=== PATIENT | male | born 1995 | race Caucasian/White ===

== ENCOUNTER 2018-08-04 09:11 | Emergency (ER) | payer OTHER ==
[~2018-08-04] VITALS: Ht 175.3 cm; Wt 92.7 kg
[2018-08-04] MEDS ORDERED: VALT1TAB PO (09:23)
[2018-08-04 11:16] VITALS: BP 139/77
== END 2018-08-04 11:18 | disposition home or self-care (01) ==
LOC: M ED 09:11
DX: R20.2 Paresthesia of skin (principal); T33.531A Superficial frostbite of right finger(s), initial encounter; Y92.89 Other specified places as the place of occurrence of the external cause; Y93.89 Activity, other specified; Z72.0 Tobacco use; Z79.899 Other long term (current) drug therapy

== ENCOUNTER 2018-11-24 02:28 | Emergency (ER) | payer OTHER ==
[~2018-11-24] VITALS: Ht 175.3 cm; Wt 93.2 kg
[~2018-11-24 02:28] MED LIST: VALT1TAB PO
[2018-11-24 02:58] LABS: BASO # 0.1 10^3/uL (0.0-0.2); BASO % 0.4 % (0.0-1.0); EOS # 0.2 10^3/uL (0.0-0.50); EOS % 1.5 % (0.0-3.0); LYMPH # 2.3 10^3/uL (1.5-6.5); LYMPH % 20.9 % (24.0-44.0); MEAN CORPUSCULAR VOLUME 85.3 fl (80.0-96.0); MONO # 0.9 10^3/uL (0.0-0.8); MONO % 8.4 % (0.0-5.0); NEUTROPHILS # 7.6 10^3/uL (1.8-7.7); NEUTROPHILS % 68.4 % (36.0-66.0); PLATELET COUNT, AUTOMATED 305 10^3/uL (150-450); RED BLOOD COUNT 5.51 10^6/uL (4.30-6.10); WHITE BLOOD COUNT 11.2 10^3/uL (4.0-10.0)
[2018-11-24 03:24] LABS: ALBUMIN 3.9 GM/DL (3.2-5.2); ALT/SGPT 34 U/L (12-78); AMYLASE 51 U/L (25-115); BILIRUBIN,DIRECT 0.2 MG/DL (0.0-0.2); BILIRUBIN,TOTAL 0.6 MG/DL (0.2-1.0); BLOOD UREA NITROGEN 25 MG/DL (7-18); CALCIUM LEVEL 8.5 MG/DL (8.5-10.1); CARBON DIOXIDE LEVEL 29 MEQ/L (21-32); CHLORIDE LEVEL 105 MEQ/L (98-107); CREATININE FOR GFR 1.06 MG/DL (0.70-1.30); GLOMERULAR FILTRATION RATE > 60.0 (>60); GLUCOSE, FASTING 86 MG/DL (70-100); LIPASE 147 U/L (73-393); POTASSIUM SERUM 3.8 MEQ/L (3.5-5.1); SODIUM LEVEL 141 MEQ/L (136-145); TOTAL PROTEIN 7.6 GM/DL (6.4-8.2)
[2018-11-24] MEDS ORDERED: ONDANSETRON 4 MG ORAL DISINTEGRATING TAB (Q0162 PER 1MG) PO ONE ×2 (03:30→06:15)
[2018-11-24 06:07] VITALS: BP 138/76
[2018-11-24] MEDS ORDERED: ONDA4TAB6 PO (06:09)
== END 2018-11-24 06:36 | disposition home or self-care (01) ==
LOC: M ED 02:28
DX: R11.2 Nausea with vomiting, unspecified (principal); R19.7 Diarrhea, unspecified; Z72.0 Tobacco use
CPT/HCPCS: 80048; 80076; 81001; 82150; 83690; 85025; 99283; Q0162

== ENCOUNTER 2020-03-31 22:31 | Inpatient (IN) | payer OTHER ==
[~2020-03-31] VITALS: Ht 175.3 cm; Wt 100.8 kg
[~2020-03-31 22:31] MED LIST changes: +ONDA4TAB6 PO
[2020-04-01] MEDS ORDERED: ONDANSETRON 4MG/2ML VIAL IV ONE (00:30)
[2020-04-01] MEDS ORDERED: NS 1,000 ML IV ONE ×2 (00:30→11:30)
[2020-04-01 00:44] LABS: BASO # 0.1 10^3/uL (0.0-0.2); BASO % 0.2 % (0.0-1.0); HEMATOCRIT 55.5 % (42.0-52.0); HEMOGLOBIN 19.7 g/dl (13.5-17.5); LYMPH # 1.6 10^3/uL (1.5-5.0); LYMPH % 5.5 % (24.0-44.0); MEAN CORPUSCULAR HEMOGLOBIN 28.8 pg (27.0-33.0); MEAN CORPUSCULAR HGB CONC 35.5 g/dl (32.0-36.5); MEAN CORPUSCULAR VOLUME 81.1 fl (80.0-96.0); MONO # 2.1 10^3/uL (0.0-0.8); MONO % 7.4 % (0.0-5.0); NEUTROPHILS # 24.2 10^3/uL (1.5-8.5); PLATELET COUNT, AUTOMATED 417 10^3/uL (150-450); RED BLOOD COUNT 6.84 10^6/uL (4.30-6.10); WHITE BLOOD COUNT 28.2 10^3/uL (4.0-10.0)
[2020-04-01] MEDS ORDERED: ISOVUE-370 76% 100ML VIAL As Ordered ONE (01:12)
[2020-04-01] MEDS ORDERED: KETOROLAC 30 MG/ML 1ML VIAL IV ONE (01:15)
[2020-04-01] MEDS ORDERED: METOCLOPRAMIDE INJ 10MG/2ML VIAL (J2765 PER 1) IV ONE (01:15)
[2020-04-01] MEDS ORDERED: GI COCKTAIL 50ML BTL(HYOSCYAMINE/MAALOX/LIDOCAINE VISCOUS)(1:3:1) PO ONE (01:15)
[2020-04-01 01:53] LABS: ALBUMIN 4.9 GM/DL (3.2-5.2); ALT/SGPT 113 U/L (12-78); BILIRUBIN,DIRECT 0.4 MG/DL (0.0-0.2); BILIRUBIN,TOTAL 1.5 MG/DL (0.2-1.0); BLOOD UREA NITROGEN 86 MG/DL (7-18); CALCIUM LEVEL 9.7 MG/DL (8.5-10.1); CARBON DIOXIDE LEVEL 22 MEQ/L (21-32); CHLORIDE LEVEL 77 MEQ/L (98-107); CPK CREATINE PHOSPHOKINASE 10799 U/L (39-308); CREATININE FOR GFR 5.93 MG/DL (0.70-1.30); GLOMERULAR FILTRATION RATE 12.8 (>60); GLUCOSE, FASTING 168 MG/DL (70-100); LIPASE 70 U/L (73-393); POTASSIUM SERUM 3.4 MEQ/L (3.5-5.1); SODIUM LEVEL 119 MEQ/L (136-145); TOTAL PROTEIN 9.5 GM/DL (6.4-8.2)
[2020-04-01] MEDS ORDERED: NS 2,000 ML in IV 1 EA IV ONE (02:00)
[2020-04-01] MEDS ORDERED: ONDA4TAB6 PO (02:26)
--- NOTE | 2020-04-01 02:27 | REPVR ---
PROCEDURE INFORMATION: Exam: CT Abdomen And Pelvis Without Contrast Exam date and time: 04/01/2020 1:06 AM Age: 24 years old Clinical indication: Vomiting; Additional info: Nv with all po x 3 days, generalized abd pain TECHNIQUE: Imaging protocol: Computed tomography of the abdomen and pelvis without contrast. Radiation optimization: All CT scans at this facility use at least one of these dose optimization techniques: automated exposure control; mA and/or kV adjustment per patient size (includes targeted exams where dose is matched to clinical indication); or iterative reconstruction. COMPARISON: No relevant prior studies available. FINDINGS: Mediastinal space: Mild mucosal thickening in the distal esophagus. Liver: The liver is low attenuation indicating hepatic steatosis. Gallbladder and bile ducts: Normal. No calcified stones. No ductal dilation. Pancreas: Normal. No ductal dilation. Spleen: Normal. No splenomegaly. Adrenals: Normal. No mass. Kidneys and ureters: Normal. No hydronephrosis. Stomach and bowel: Unremarkable. No obstruction. No inflammatory changes or mucosal thickening. Appendix: No evidence of appendicitis. Intraperitoneal space: Unremarkable. No free air. No significant fluid collection. Vasculature: Unremarkable. No abdominal aortic aneurysm. Lymph nodes: Unremarkable. No enlarged lymph nodes. Urinary bladder: Unremarkable as visualized. Reproductive: Unremarkable as visualized. Bones/joints: Unremarkable. No acute fracture. Soft tissues: Unremarkable. IMPRESSION: 1. Hepatic steatosis. 2. Mild mucosal thickening in the distal esophagus suggesting esophagitis. No hiatal hernia. 3. No other acute findings. Electronically signed by: Antonio Martin On 04/01/2020 02:26:38 AM
[2020-04-01] MEDS ORDERED: KCL 10MEQ/100ML SWI (KRUN) 10 MEQ in IV 1 EA IV ONE (02:45)
[2020-04-01] MEDS ORDERED: ACETAMINOPHEN TAB 650MG DOSE (2X325MG) PO PRN (02:45)
--- NOTE | 2020-04-01 02:53 | HPEPDOC ---
[facility] Medical History & Physical Date of Admission Apr 01, 2020 Date of Service: Apr 01, 2020 Other Provider [facility] History and Physical TIME OF SERVICE: 5:30 AM CHIEF COMPLAINT: Vomiting HISTORY OF PRESENT ILLNESS: This 24-year-old gentle and presented with complaints of multiple episodes of vomiting for the last 3 days. He is been having difficulties keeping any food down and has had a poor appetite. He has been trying to drink vitamin water to help keep him hydrated. He has also been having chills, episodes of sweating, diffuse cramping abdominal pain, and cramping in his arms and legs. 3 L of normal saline were ordered in the ER along with Reglan ketorolac and a GI cocktail. REVIEW OF SYSTEMS: 12 point review of systems negative except as listed in HPI PAST MEDICAL/ SURGICAL HISTORY: Right hip surgery SOCIAL HISTORY: He smokes He doesn't drink alcohol He doesn't use recreational drugs FAMILY HISTORY: no family hx of kidney disease ALLERGIES: Please see below. HOME MEDICATIONS: Please see below. PHYSICAL EXAMINATION: Vital Signs Date Time Temp Pulse Resp B/P (MAP) Pulse Ox O2 Delivery O2 Flow Rate FiO2 03/31/20 22:32 104 20 99 Room Air 04/01/20 01:36 97.8 GEN: well-nourished / well developed/ NAD INTEGUMENT: slightly flushed/ slighly jaundice / has tattoos HEENT: mucus membranes moist and pink CVS: RRR/NMRG/ radial pulses intact / no lower extremity edema LUNGS: able to speak full sentences without stopping to take a breath / no coughing / lungs are clear to auscultation bilaterally on room air ABDOMEN: Contour ( obese) / soft MSK/EXTREMITIES: range of motion intact in all 4 extremities NEURO: CN 2-12 are grossly intact / speech is not dysarthric PSYCH: alert and oriented to person place and time/ able to understand and follow all commands LABORATORY DATA: 04/01/20 00:38 Immature Granulocyte % (Auto) 0.9, Neutrophils (%) (Auto) 86.0H, Lymphocytes (%) (Auto) 5.5L, Monocytes (%) (Auto) 7.4H, Eosinophils (%) (Auto) 0.0, Basophils (%) (Auto) 0.2, Neutrophils # (Auto) 24.2H, Lymphocytes # (Auto) 1.6, Monocytes # (Auto) 2.1H, Eosinophils # (Auto) 0.0, Basophils # (Auto) 0.1, Nucleated Red Blood Cells % (auto) 0.0, Anion Gap 20H, Glomerular Filtration Rate 12.8L, Calcium Level 9.7, Total Bilirubin 1.5H, Direct Bilirubin 0.4H, Aspartate Amino Transf (AST/SGOT) 223H, Alanine Aminotransferase (ALT/SGPT) 113H, Alkaline Phosphatase 132H, Total Creatine Kinase 60968P, Total Protein 9.5H, Albumin 4.9, Albumin/Globulin Ratio 1.1, Lipase 70L 04/01/20 02:22: Urine Color YELLOW, Urine Appearance CLOUDYH, Urine pH 5.0, Urine Specific [place] 1.016, Urine Protein 1+H, Urine Glucose (UA) NEGATIVE, Urine Ketones TRACEH, Urine Blood 3+H, Urine Nitrite NEGATIVE, Urine Bilirubin NEGATIVE, Urine Urobilinogen 0.2, Urine Leukocyte Esterase NEGATIVE, Urine WBC (Auto) 29H, Urine RBC (Auto) 3, Urine Hyaline Casts (Auto) 31, Urine Bacteria (Auto) 1+H, Urine Squamous Epithelial Cells 0, Urine Amorphous Sediment SMALLH, Urine Mucus (Auto) SMALL, Urine Sperm (Auto) IMAGING: CT abd/pelvis "IMPRESSION: 1. Hepatic steatosis. 2. Mild mucosal thickening in the distal esophagus suggesting esophagitis. No hiatal hernia. 3. No other acute findings." MICROBIOLOGY: 04/01/20 Urine Culture, Received Pending ASSESSMENT: is a 24-year-old gentleman who will be admitted for management of n/v, BRIAN, SIRS, multiple electrolyte abnormalities and transaminitis. PLAN: 1 Dehydration 2/2 Nausea and Vomiting Plan: admit to med surg w telemetry / check EKG for QTC prior to giving Zofran / NS / try CLD 2 SIRS likely reactive criteria include tachycardia and leukocytosis Plan: f/u lactic acid, blood cx & GI panel 3 Multifactorial BRIAN likely 2/2 dehydration and elevated CK Plan: monitor Is and Os / IVF / f/u ulytes / uric acid, PTH, Phosph / f/u w Nephro 4 Asymptomatic Hypovolemic Hyponatremia Plan: f/u Adrienne, Uosmo, serum osmol / IVF 5 Hypokalemia 2/2 vomiting and poor PO intake Plan: KCl IV & f/u Mag 6 Elevated CK pt denies taking drugs and reports working out frequently Plan:IVF / trend CK/ f/u urine drug screen 7 AG Metabolic Acidosis Plan: f/u VBG & repeat BMP / f/u w Nephro [address] showed fatty liver He denies eating out which makes Hep A less likely Plan:f/u Hep panel, HIV and trend LFTs 9 Obesity Plan: f/u A1C DVT PROPHYLAXIS: Heparin DISPOSITION: home after more than 2 midnight's stay Home Medications Scheduled PRN Ondansetron (Ondansetron Odt) 4 Mg Tab.rapdis, 4 MG PO TID PRN for NAUSEA Allergies Coded Allergies: No Known Allergies (Unverified , 08/04/18) A-FIB/CHADSVASC A-FIB History Current/History of A-Fib/PAF?: No Current PO Anticoag Therapy: No CARLTON YOO MD Apr 01, 2020 02:53
[2020-04-01 03:07] LABS: ACETAMINOPHEN LEVEL < 2.0 UG/ML (10.0-30.0); ETHYL ALCOHOL (ETHANOL) 0.006 % (0.000-0.010); SALICYLATE LEVEL < 1.7 MG/DL (5.0-30.0)
[2020-04-01 03:10] LABS: AMPHETAMINES LEVEL URINE NEGATIVE (NEGATIVE); BARBITURATES URINE NEGATIVE (NEGATIVE); BENZODIAZEPINES URINE NEGATIVE (NEGATIVE); CANNABINOIDS URINE NEGATIVE (NEGATIVE); COCAINE METABOLITE URINE NEGATIVE (NEGATIVE); METHADONE URINE NEGATIVE (NEGATIVE); OPIATES URINE NEGATIVE (NEGATIVE); PHENCYCLIDINE URINE NEGATIVE (NEGATIVE)
[2020-04-01] MEDS: NS 1,000 ML IV SCH ×3 (03:40→20:49)
[2020-04-01 03:44] LABS: POTASSIUM RANDOM URINE 49.3 MEQ/L; TOTAL PROTEIN,RANDOM URINE 40.7 MG/DL (0.0-12.0)
[2020-04-01 03:52] LABS: ERYTHROCYTE SEDIMENTATION RATE 1 mm/hr (0-15)
[2020-04-01 04:46] VITALS: BP 131/83
[2020-04-01 04:51] LABS: VENOUS BASE EXCESS -5.4 (-2.0-2.0); VENOUS HCO3 18.6 MEQ/L (23.0-27.0); VENOUS O2 SATURATION 89.5 % (60.0-80.0); VENOUS PARTIAL PRESSURE CO2 33.1 mmHg (38.0-50.0); VENOUS PARTIAL PRESSURE O2 62.9 mmHg (30.0-50.0); VENOUS PH 7.368 UNITS (7.330-7.430); VENOUS STANDARD HCO3 19.9 MEQ/L; VENOUS TOTAL CO2 19.6 MEQ/L (24.0-28.0)
[2020-04-01] MEDS: HEPARIN SOD (PORCINE) 5000UNITS/ML 1ML VIAL/SYRINGE SC SCH ×3 (05:09→22:13)
[2020-04-01 05:10] LABS: HEMOGLOBIN A1c 5.6 %
[2020-04-01] MEDS: ONDANSETRON 4MG/2ML VIAL IV PRN ×4 (06:29→22:13)
[2020-04-01 08:00] VITALS: BP 143/87
[2020-04-01 11:12] LABS: HEMATOCRIT 45.1 % (42.0-52.0); MEAN CORPUSCULAR HEMOGLOBIN 29.5 pg (27.0-33.0); MEAN CORPUSCULAR HGB CONC 36.1 g/dl (32.0-36.5); MEAN CORPUSCULAR VOLUME 81.7 fl (80.0-96.0); PLATELET COUNT, AUTOMATED 327 10^3/uL (150-450); RED BLOOD COUNT 5.52 10^6/uL (4.30-6.10); WHITE BLOOD COUNT 19.4 10^3/uL (4.0-10.0)
[2020-04-01 11:19] LABS: HEMOGLOBIN 16.3 g/dl (13.5-17.5)
[2020-04-01] MEDS ORDERED: POTASSIUM CHLORIDE 10 MEQ SR TABLET PO ONE (11:30)
--- NOTE | 2020-04-01 12:04 | IPNPDOC ---
Text Note Date of Service The patient was seen on 04/01/20. NOTE S Patient was seen and examined at bedside this morning. He was still having some nausea but was able to speak in full sentences and appears comfortable. No events since admission. Tells me he still has some sore muscles. But otherwise feels well. He's been making good urine output regularly. O Constitutional: Awake and alert, in no apparent distress ENT: Sclera are clear. Mucosa is moist. Respiratory: Lungs CTA bilaterally. No respiratory distress. No use of accessory muscles. Cardiovascular: Sinus rhythm S1 and S2 are normal, no murmur Gastrointestinal: Abdomen is soft, non distended, non tender, BS present. Musculoskeletal: No edema. No joint deformities. RUE 5/5, LUE 5/5, BLE 5/5 Neurologic: No focal neurological deficit. Mental Status: A&O x3, normal affect Skin: Warm, dry A/P 24-year-old male with no significant past medical history presents to the emergency department for nausea vomiting and some mild abdominal pain as well as muscle pain. Found to have an BRIAN and in rhabdomyolysis. Likely has gastroenteritis which may have dehydrated him leading to rhabdomyolysis as well as the HPI as well as some of the electrolyte abnormalities seen. # Rhabdomyolysis: CK 10k on admit. aggressive IVF hydration. Trend CK daily. Naylor s weight lifting could also have been dehydrated from gastroenteritis. Initial CBC suggests hemoconcentration when compared to later results. # Gastroenteritis: some abdominal pain, n/v. improved with IVFs. Monitor. Qtc ok - zofran PRN. # BRIAN: 2/2 rhabdo. IVFs. Nephro consult. Good UO. # Transaminitis: fatty liver on CT. LFTs. Hep panel. # Hyponatremia: NS IVF. asymptomatic. monitor. # Possible pneumonia: Leukocytosis and cough, no fever. CXR. Start on levofloxacin. # Dirty urinalysis: Suspect UTI. Urine culture pending. IV Levaquin for now. Denies dysuria. # Obesity: A1C 5.5%. BMI 33. Lifestyle modifications. # Hypok: correct. Monitor. # DVT Proph: heparin Follow-up on chest x-ray, urine and blood cultures, LFTs and hepatitis panel. CK. Kidney function. [facility] Becky CAMP, I+O VS, Becky, I+O Laboratory Tests 04/01/20 00:38 Vital Signs Date Time Temp Pulse Resp B/P (MAP) Pulse Ox O2 Delivery O2 Flow Rate FiO2 04/01/20 04:46 98.3 83 18 131/83 (99) 99 Room Air I&O- Last 24 Hours up to 6 AM 04/01/20 05:59 Intake Total 2100 ml Output Total 300 ml Balance 1800 ml THOMAS ISAACS MD Apr 01, 2020 07:21
[2020-04-01] MEDS ORDERED: LevoFLOXacin IV 500 MG in IV 1 EA IV ONE (13:00)
[2020-04-01 14:03] LABS: CALCIUM LEVEL 8.3 MG/DL (8.5-10.1); CREATININE FOR GFR 3.4 MG/DL (0.70-1.30); GLOMERULAR FILTRATION RATE 24.2 (>60); POTASSIUM SERUM 3.7 MEQ/L (3.5-5.1)
[2020-04-01 15:18] LABS: HEPATITIS B CORE ANTIBODY IGM NEGATIVE (NEGATIVE); HEPATITIS B SURFACE ANTIBODY POSITIVE (POSITIVE); HEPATITIS B SURFACE ANTIGEN NEGATIVE (NEGATIVE); HEPATITIS C VIRUS ABY INDEX 0.1 INDEX (<0.8); HIV 1&2 SCREEN CENTAUR NEGATIVE (NEGATIVE); PTH INTACT 229.9 PG/ML (18.5-88.0); URIC ACID 19.2 MG/DL (3.5-7.2)
[2020-04-01 16:00] VITALS: BP 125/73
[2020-04-01 16:30] LABS: OSMOLALITY URINE 425 MOSM/KG (500-800)
[2020-04-01 16:47] LABS: SODIUM,RANDOM URINE 10 MEQ/L
[2020-04-01 17:31] VITALS: BP 145/91
[2020-04-01 19:00] VITALS: BP 139/90
[2020-04-01 20:35] LABS: ALBUMIN 3.2 GM/DL (3.2-5.2); CALCIUM LEVEL 8.2 MG/DL (8.5-10.1); CREATININE FOR GFR 2.16 MG/DL (0.70-1.30); GLOMERULAR FILTRATION RATE 40.9 (>60); PHOSPHORUS LEVEL 2.7 MG/DL (2.5-4.9); POTASSIUM SERUM 3.9 MEQ/L (3.5-5.1)
[2020-04-01 21:27] LABS: MAGNESIUM LEVEL 3.1 MG/DL (1.8-2.4)
[2020-04-01 22:00] VITALS: BP 138/88
[2020-04-02] MEDS ORDERED: D5W 1,000 ML IV SCH (00:15)
[2020-04-02 00:56] LABS: CALCIUM LEVEL 8.4 MG/DL (8.5-10.1); CREATININE FOR GFR 1.78 MG/DL (0.70-1.30); GLOMERULAR FILTRATION RATE 51.1 (>60); POTASSIUM SERUM 3.8 MEQ/L (3.5-5.1)
[2020-04-02 02:00] VITALS: BP 138/88
[2020-04-02] MEDS: ONDANSETRON 4MG/2ML VIAL IV PRN ×4 (03:58→16:58)
[2020-04-02] MEDS ORDERED: METOCLOPRAMIDE INJ 10MG/2ML VIAL (J2765 PER 1) IV PRN (05:45)
[2020-04-02] MEDS: HEPARIN SOD (PORCINE) 5000UNITS/ML 1ML VIAL/SYRINGE SC SCH ×3 (05:58→21:09)
[2020-04-02 06:00] VITALS: BP 139/89
[2020-04-02 07:26] LABS: ALBUMIN 3.3 GM/DL (3.2-5.2); ALT/SGPT 100 U/L (12-78); BILIRUBIN,TOTAL 1.6 MG/DL (0.2-1.0); BLOOD UREA NITROGEN 33 MG/DL (7-18); CALCIUM LEVEL 8.5 MG/DL (8.5-10.1); CARBON DIOXIDE LEVEL 27 MEQ/L (21-32); CHLORIDE LEVEL 98 MEQ/L (98-107); CPK CREATINE PHOSPHOKINASE 4013 U/L (39-308); CREATININE FOR GFR 1.41 MG/DL (0.70-1.30); GLOMERULAR FILTRATION RATE > 60.0 (>60); GLUCOSE, FASTING 107 MG/DL (70-100); MAGNESIUM LEVEL 2.9 MG/DL (1.8-2.4); POTASSIUM SERUM 4.2 MEQ/L (3.5-5.1); SODIUM LEVEL 134 MEQ/L (136-145); TOTAL PROTEIN 6.7 GM/DL (6.4-8.2)
[2020-04-02] MEDS ORDERED: LACTATED RINGER'S 1000 ML IV ONE (07:30)
[2020-04-02] MEDS: LevoFLOXacin IV 500 MG in IV 1 EA IV SCH (08:36)
[2020-04-02] MEDS: LR 1,000 ML IV SCH ×3 (08:36→21:11)
--- NOTE | 2020-04-02 09:39 | ECGEPIP ---
[facility] Test Date: 2020-04-01 Pat Name: LUANNE CORBETT Department: Room: [place] [address] Gender: Male Senior Qa Engineer: ELIS : 1995 Requested By: THOMAS Carrero Order Number: [id number] Reading MD: Marvin Cornejo Measurements Intervals [place] Rate: 96 P: 5 NE: 124 QRS: 23 QRSD: 102 T: 22 QT: 336 QTc: 426 Interpretive Statements Normal sinus rhythm Normal EKG Comparison tracing not on file Electronically Signed on 04-02-2020 9:38:46 EDT by Marvin Cornejo
[2020-04-02 10:00] VITALS: BP 138/90
[2020-04-02 12:55] LABS: ALBUMIN 3.3 GM/DL (3.2-5.2); ALT/SGPT 92 U/L (12-78); BILIRUBIN,TOTAL 1.5 MG/DL (0.2-1.0); BLOOD UREA NITROGEN 26 MG/DL (7-18); CALCIUM LEVEL 8.5 MG/DL (8.5-10.1); CARBON DIOXIDE LEVEL 27 MEQ/L (21-32); CHLORIDE LEVEL 97 MEQ/L (98-107); CREATININE FOR GFR 1.24 MG/DL (0.70-1.30); GLOMERULAR FILTRATION RATE > 60.0 (>60); GLUCOSE, FASTING 110 MG/DL (70-100); POTASSIUM SERUM 3.8 MEQ/L (3.5-5.1); SODIUM LEVEL 131 MEQ/L (136-145); TOTAL PROTEIN 6.5 GM/DL (6.4-8.2)
[2020-04-02] MEDS ORDERED: LevoFLOXacin IV 250 MG in IV 1 EA IV SCH (13:00)
[2020-04-02 14:00] VITALS: BP 133/78
[2020-04-02 18:00] VITALS: BP 157/93
--- NOTE | 2020-04-02 18:30 | IPNPDOC ---
Text Note Date of Service The patient was seen on 04/02/20. NOTE S Patient was seen and examined at bedside this morning. Tells me has muscle soreness has significantly improved. He still has some nausea vomiting and diarrhea. He's been making good urine output regularly. O Constitutional: Awake and alert, in no apparent distress ENT: Sclera are clear. Mucosa is moist. Respiratory: Lungs CTA bilaterally. No respiratory distress. No use of accessory muscles. Cardiovascular: Sinus rhythm S1 and S2 are normal, no murmur Gastrointestinal: Abdomen is soft, non distended, non tender, BS present. Musculoskeletal: No edema. No joint deformities. RUE 5/5, LUE 5/5, BLE 5/5 Neurologic: No focal neurological deficit. Mental Status: A&O x3, normal affect Skin: Warm, dry A/P 24-year-old male with no significant past medical history presents to the emergency department for nausea vomiting and some mild abdominal pain as well as muscle pain. Found to have an BRIAN and in rhabdomyolysis. Likely has gastroenteritis which may have dehydrated him leading to rhabdomyolysis as well as the HPI as well as some of the electrolyte abnormalities seen. Patient has received IV fluids for the urinalysis with improvement of his symptoms muscle pain has resolved and creatinine # Rhabdomyolysis: CK 10k on admit downtrending. IVF hydration. Trend CK daily. Does weight lifting could also have been dehydrated from gastroenteritis. # Likely Gastroenteritis: some abdominal pain, n/v. improved with IVFs. Monitor. Qtc ok - zofran PRN. # BRIAN: 2/2 rhabdo. IVFs. Nephro consultcontinue fluids. Good UO. # Transaminitis: fatty liver on CT. LFTs. Hep panel negative # Hyponatremia: Resolving. LR IVF. asymptomatic. monitor. # Possible pneumonia: Leukocytosis and cough, no fever. CXR. Continue renally dosed levofloxacin. Leukocytosis improving # Dirty urinalysis: Denies dysuria. Urine culture negative. # Obesity: A1C 5.5%. BMI 33. Lifestyle modifications. # Hypok: correct. Monitor. # DVT Proph: heparin Follow-up on chest x-ray, urine and blood cultures, LFTs and hepatitis panel. CK. Kidney function. [facility] VSBecky, I+O VS, Becky, I+O Laboratory Tests 04/01/20 19:48 04/02/20 00:21 04/02/20 05:27 04/02/20 12:01 Vital Signs Date Time Temp Pulse Resp B/P (MAP) Pulse Ox O2 Delivery O2 Flow Rate FiO2 04/02/20 14:00 98.9 98 18 133/78 (96) 99 Room Air I&O- Last 24 Hours up to 6 AM 04/02/20 06:00 Intake Total 2925 ml Output Total 2625 ml Balance 300 ml THOMAS ISAACS MD Apr 02, 2020 18:30
[2020-04-02 18:52] LABS: ALBUMIN 3.3 GM/DL (3.2-5.2); ALT/SGPT 102 U/L (12-78); BILIRUBIN,TOTAL 1.5 MG/DL (0.2-1.0); BLOOD UREA NITROGEN 21 MG/DL (7-18); CALCIUM LEVEL 8.7 MG/DL (8.5-10.1); CARBON DIOXIDE LEVEL 27 MEQ/L (21-32); CHLORIDE LEVEL 100 MEQ/L (98-107); CREATININE FOR GFR 1.21 MG/DL (0.70-1.30); GLOMERULAR FILTRATION RATE > 60.0 (>60); GLUCOSE, FASTING 105 MG/DL (70-100); SODIUM LEVEL 135 MEQ/L (136-145); TOTAL PROTEIN 6.9 GM/DL (6.4-8.2)
[2020-04-02 22:00] VITALS: BP 143/87
[2020-04-03 02:00] VITALS: BP 135/80
[2020-04-03 06:00] VITALS: BP 143/82
[2020-04-03] MEDS: HEPARIN SOD (PORCINE) 5000UNITS/ML 1ML VIAL/SYRINGE SC SCH ×3 (06:02→21:56)
[2020-04-03 06:19] LABS: HEMATOCRIT 41.3 % (42.0-52.0); MEAN CORPUSCULAR HEMOGLOBIN 29.4 pg (27.0-33.0); MEAN CORPUSCULAR HGB CONC 34.1 g/dl (32.0-36.5); PLATELET COUNT, AUTOMATED 264 10^3/uL (150-450); WHITE BLOOD COUNT 10.7 10^3/uL (4.0-10.0)
[2020-04-03 06:24] LABS: HEMOGLOBIN 14.1 g/dl (13.5-17.5)
[2020-04-03] MEDS: ONDANSETRON 4MG/2ML VIAL IV PRN ×3 (06:35→18:58)
[2020-04-03 06:58] LABS: BLOOD UREA NITROGEN 18 MG/DL (7-18); CALCIUM LEVEL 8.8 MG/DL (8.5-10.1); CARBON DIOXIDE LEVEL 28 MEQ/L (21-32); CHLORIDE LEVEL 99 MEQ/L (98-107); CPK CREATINE PHOSPHOKINASE 1245 U/L (39-308); CREATININE FOR GFR 1.07 MG/DL (0.70-1.30); GLOMERULAR FILTRATION RATE > 60.0 (>60); GLUCOSE, FASTING 97 MG/DL (70-100); POTASSIUM SERUM 3.7 MEQ/L (3.5-5.1); SODIUM LEVEL 133 MEQ/L (136-145)
[2020-04-03] MEDS: LevoFLOXacin IV 500 MG in IV 1 EA IV SCH (08:46)
[2020-04-03 10:00] VITALS: BP 144/89
[2020-04-03] MEDS: LR 1,000 ML IV SCH ×2 (11:44→21:57)
--- NOTE | 2020-04-03 17:20 | IPNPDOC ---
Text Note Date of Service The patient was seen on 04/03/20. NOTE S Patient was seen and examined at bedside this morning. Tells me has muscle soreness has resolved. He still has some minor nausea vomiting and diarrhea but better than before. He's been making good urine output regularly. Has been trying to eat his diet. O Constitutional: Awake and alert, in no apparent distress ENT: Sclera are clear. Mucosa is moist. Respiratory: Lungs CTA bilaterally. No respiratory distress. No use of accessory muscles. Cardiovascular: Sinus rhythm S1 and S2 are normal, no murmur Gastrointestinal: Abdomen is soft, non distended, non tender, BS present. Musculoskeletal: No edema. No joint deformities. RUE 5/5, LUE 5/5, BLE 5/5 Neurologic: No focal neurological deficit. Mental Status: A&O x3, normal affect Skin: Warm, dry A/P 24-year-old male with no significant past medical history presents to the emergency department for nausea vomiting and some mild abdominal pain as well as muscle pain. Found to have an BRIAN and in rhabdomyolysis. Likely has gastroenteritis which may have dehydrated him leading to rhabdomyolysis as well as the HPI as well as some of the electrolyte abnormalities seen. Patient has received IV fluids for the urinalysis with improvement of his symptoms muscle pain has resolved and his kidney function, appears to fully recovered. # Rhabdomyolysis: CK 10k on admit downtrending nicely. IVF hydration. Trend CK daily. Does weight lifting could also have been dehydrated from gastroenteritis. # Likely Gastroenteritis: some abdominal pain, n/v. improved with IVFs. Monitor. Qtc ok - zofran PRN. # BRIAN: Resolved. 2/ rhabdo. IVFs. Nephro consultcontinue fluids. Good UO. # Transaminitis: fatty liver on CT. LFTs. Hep panel negative # Hyponatremia: Resolving. LR IVF. asymptomatic. monitor. # Possible pneumonia: Leukocytosis and cough, no fever. CXR. Continue renally dosed levofloxacin. Leukocytosis improving # Dirty urinalysis: Denies dysuria. Urine culture negative. # Obesity: A1C 5.5%. BMI 33. Lifestyle modifications. # Hypok: Resolved. Corrected. Monitor. # DVT Proph: heparin [facility] VS,Becky, I+O VS, Cirilobone, I+O Laboratory Tests 04/02/20 18:09 04/03/20 05:26 Vital Signs Date Time Temp Pulse Resp B/P (MAP) Pulse Ox O2 Delivery O2 Flow Rate FiO2 04/03/20 10:00 98.6 60 17 144/89 (107) 97 Room Air I&O- Last 24 Hours up to 6 AM 04/03/20 05:59 Intake Total 4075 ml Output Total 2525 ml Balance 1550 ml THOMAS ISAACS MD Apr 03, 2020 17:20
[2020-04-03] MEDS: PANTOPRAZOLE 40MG VIAL (C9113 PER 1) IV SCH (18:58)
[2020-04-03 22:00] VITALS: BP 140/82
[2020-04-04 02:00] VITALS: BP 152/84
[2020-04-04 06:00] VITALS: BP 145/72
[2020-04-04] MEDS: HEPARIN SOD (PORCINE) 5000UNITS/ML 1ML VIAL/SYRINGE SC SCH (06:17)
[2020-04-04] MEDS: ONDANSETRON 4MG/2ML VIAL IV PRN (06:17)
[2020-04-04 06:48] LABS: CPK CREATINE PHOSPHOKINASE 413 U/L (39-308)
[2020-04-04] MEDS: LevoFLOXacin IV 500 MG in IV 1 EA IV SCH (08:11)
[2020-04-04] MEDS: PANTOPRAZOLE 40MG VIAL (C9113 PER 1) IV SCH (08:12)
[2020-04-04 09:27] LABS: ALBUMIN 2.9 GM/DL (3.2-5.2); BLOOD UREA NITROGEN 11 MG/DL (7-18); CALCIUM LEVEL 8.6 MG/DL (8.5-10.1); CARBON DIOXIDE LEVEL 30 MEQ/L (21-32); CHLORIDE LEVEL 101 MEQ/L (98-107); CREATININE FOR GFR 1.09 MG/DL (0.70-1.30); GLOMERULAR FILTRATION RATE > 60.0 (>60); GLUCOSE, FASTING 98 MG/DL (70-100); PHOSPHORUS LEVEL 2.5 MG/DL (2.5-4.9); POTASSIUM SERUM 3.5 MEQ/L (3.5-5.1); SODIUM LEVEL 137 MEQ/L (136-145)
[2020-04-04 10:00] VITALS: BP 130/70
[2020-04-04] MEDS ORDERED: LEVO750T13 PO (11:08)
[2020-04-04] MEDS ORDERED: PROT20TA11 PO (11:08)
[2020-04-04] MEDS ORDERED: ONDA4TAB6 PO (11:08)
--- NOTE | 2020-04-04 11:14 | DS.PDOC ---
Discharge Summary General Date of Admission Apr 01, 2020 at 02:37 Date of Discharge 04/04/2020 Discharge Summary PROCEDURES PERFORMED DURING STAY: [None]. ADMITTING DIAGNOSES: 1. Gastroenteritis DISCHARGE DIAGNOSES: 1. Acute kidney injury. #2 rhabdomyolysis. #3 viral gastroenteritis COMPLICATIONS/CHIEF COMPLAINT: Martín,Hyponatremia. HISTORY OF PRESENT ILLNESS: From admitting H&P This 24-year-old gentle and presented with complaints of multiple episodes of vomiting for the last 3 days. He is been having difficulties keeping any food down and has had a poor appetite. He has been trying to drink vitamin water to help keep him hydrated. He has also been having chills, episodes of sweating, diffuse cramping abdominal pain, and cramping in his arms and legs. 3 L of normal saline were ordered in the ER along with Reglan ketorolac and a GI cocktail. HOSPITAL COURSE: 24-year-old male with no significant past medical history presents to the emergency department for nausea vomiting and some mild abdominal pain as well as muscle pain. Found to have an MARTÍN and in rhabdomyolysis. Likely has gastroente ritis which may have dehydrated him leading to rhabdomyolysis as well as the HPI as well as some of the electrolyte abnormalities seen. Patient has received IV fluids for the urinalysis with improvement of his symptoms muscle pain has resolved and his kidney function, appears to fully recovered. Rhabdomyolysis resolved. Will need to rest at home and follow-up with his primary care doctor in 3-5 days to determine when he is able to go back to work. # Rhabdomyolysis: CK 10k on admit downtrending nicely 413 on discharge. IVF hydration while admitted and encourage continued oral hydration at home. Does weight lifting could also have been dehydrated from gastroenteritis. # Viral Gastroenteritis: Abdominal pain, nausea and vomiting have resolved. improved with IVFs. Monitor. Qtc ok - zofran PRN. # MARTÍN: Resolved. 2/ rhabdo. IVFs. Nephro consultcontinue fluids. Good UO. # Transaminitis: fatty liver on CT. LFTs. Hep panel negative # Hyponatremia: Resolving. LR IVF. asymptomatic. monitor. # Possible pneumonia: Leukocytosis and cough, no fever. CXR. Continue renally dosed levofloxacin. Leukocytosis and cough both improving WBC almost normal on discharge temperature no shortness of breath or sputum production. Will complete course of levofloxacin by mouth upon discharge. # Obesity: A1C 5.5%. BMI 33. Lifestyle modifications. # Hypok: Resolved. Corrected. Monitor. DISCHARGE MEDICATIONS: Please see below. ALLERGIES: Please see below. PHYSICAL EXAMINATION ON DISCHARGE: VITAL SIGNS: Please see below. Constitutional: Awake and alert, in no apparent distress ENT: Sclera are clear. Mucosa is moist. Respiratory: Lungs CTA bilaterally. No respiratory distress. No use of accessory muscles. Cardiovascular: Sinus rhythm S1 and S2 are normal, no murmur Gastrointestinal: Abdomen is soft, non distended, non tender, BS present. Musculoskeletal: No edema. No joint deformities. RUE 5/5, LUE 5/5, BLE 5/5 Neurologic: No focal neurological deficit. Mental Status: A&O x3, normal affect Skin: Warm, dry LABORATORY DATA: Please see below. PROGNOSIS: Good ACTIVITY: [As tolerated]. DIET: Regular DISPOSITION: . Home DISCHARGE INSTRUCTIONS: Please follow up with your primary care physician within 1 week from discharge. If you do not have one, please follow up with us to schedule an appointment. Please keep all of your follow up appointments. Please call central to book your appointments with hospital specialists. Please take all your medications as prescribed. Please call/come to Clinic or go to the Emergency Department if - Temp >101, intractable Nausea/Vomiting, Diarrhea, Mouth sores, Headaches, Altered mental status, Seizures, sudden onset of swelling, bleeding, shortness of breath or chest pain. ITEMS TO FOLLOWUP ON ON OUTPATIENT: 1. Follow-up with PCP in 3-5 days after discharge. Take antibiotics as prescribed. DISCHARGE CONDITION: [Stable]. TIME SPENT ON DISCHARGE: Greater than 35 minutes. Vital Signs/I&Os Vital Signs Date Time Temp Pulse Resp B/P (MAP) Pulse Ox O2 Delivery O2 Flow Rate FiO2 04/04/20 10:00 97.8 87 19 130/70 (90) 97 Room Air I&O- Last 24 Hours up to 6 AM 04/04/20 06:00 Intake Total 4400 ml Output Total 675 ml Balance 3725 ml Laboratory Data Labs 24H Laboratory Tests 2 04/04/20 06:01: Anion Gap 6L, Glomerular Filtration Rate > 60.0, Calcium Level 8.6, Phosphorus Level 2.5, Total Creatine Kinase 413H, Albumin 2.9L CBC/BMP Laboratory Tests 04/04/20 06:01 Microbiology Microbiology 04/01/20 Gastrointestinal Tract Panel (PCR) - Final, Complete 04/01/20 Respiratory Virus Panel (PCR) ([facility]RE[facility]) - Final, Complete 04/01/20 Blood Culture - Preliminary, Resulted No Growth after 72 hours. All specime... 04/01/20 Blood Culture - Preliminary, Resulted No Growth after 72 hours. All specime... 04/01/20 Urine Culture - Final, Complete Discharge Medications Scheduled Levofloxacin (Levofloxacin) 750 Mg Tablet, 750 MG PO DAILY Pantoprazole Sodium (Protonix) 20 Mg Tablet.dr, 20 MG PO BID Scheduled PRN Ondansetron (Ondansetron Odt) 4 Mg Tab.rapdis, 4 MG PO QID PRN for NAUSEA Allergies Coded Allergies: No Known Allergies (Unverified , 08/04/18) THOMAS ISAACS MD Apr 04, 2020 11:14
--- NOTE | 2020-04-07 10:24 | IPN ---
DATE: 04/04/2020 SUBJECTIVE: Patient was seen and examined at the bedside today morning. He is afebrile, hemodynamically stable. Renal function has improved back to baseline. IV fluids have been stopped. He denies any nausea or vomiting at this time. OBJECTIVE: Vital signs: Temperature is 97.8 degrees Fahrenheit, blood pressure 130/70, pulse is 87, respiratory rate of 19, saturating 97% on room air. Intake and output: Urine output is not recorded. Weight in the bed scale is 100.8 kg. PHYSICAL EXAMINATION: General: Patient is awake, alert, oriented times three, sitting up in the bed, no apparent distress. Head and neck exam: Extraocular muscles intact. Pupils equally round and reactive to light. Mucous membranes are moist. Neck is supple. There is no jugular venous distension (JVD). Cardiovascular: S1, S2, regular rate. No edema of the bilateral lower extremities. Respiratory: Chest is clear to auscultation bilaterally. Bilateral equal air entry. No rales or rhonchi. Abdomen: Soft, positive bowel sounds, nontender, no organomegaly. Musculoskeletal: No clubbing or cyanosis. Pulses are 2+. Central nervous system ([employer]IE[employer]): No focal deficits. Power is 5/5 in all extremities. LABORATORY REVIEW: BMP done today morning showed sodium 137, potassium 3.5, chloride 101, bicarbonate 30, BUN 11, creatinine is 1.09, creatine kinase is 413, albumin is 2.9. CURRENT INPATIENT MEDICATIONS: Patients medications were all reviewed by myself. Ringers lactate has been stopped. ASSESSMENT AND PLAN: 1. Acute renal failure. It was secondary to dehydration and rhabdomyolysis. Renal function has improved back to baseline. 2. Hyponatremia. It has improved. Sodium is 137 today which is within the acceptable range. 3. Rhabdomyolysis. It has almost resolved now. Creatine phosphokinase (CPK) level is 413. Patient to avoid rigorous physical activity 1 week after discharge from the hospital. 4. Acute gastroenteritis. Symptoms are resolved. Patient got Levaquin 500 mg daily for three doses. DISPOSITION: Patient is okay to be discharged from nephrology standpoint. [facility]
--- NOTE | 2020-04-07 10:30 | IPN ---
DATE: 04/03/2020 SUBJECTIVE: Patient was seen and examined at the bedside today morning. Patient is afebrile and hemodynamically stable. He reports that his nausea and vomiting is getting better. His renal function is also improving. Creatinine has come down to 1 today. CPK level is also coming down. Electrolytes are within the acceptable range. His ringers lactate was decreased yesterday to 100 cc an hour. OBJECTIVE: VITAL SIGNS: Temperature 98.6 degrees Fahrenheit, blood pressure 144/89, pulse 60, respiratory rate 17, saturating 97% on room air. Intake and output: Urine output recorded as 2.3 liters yesterday and 1.2 liter so far today since overnight. Weight in the bed scale is 100.6 kg, which is stable since yesterday. PHYSICAL EXAMINATION: GENERAL: Patient is awake, alert, and oriented x3, lying in the bed in no apparent distress. HEAD AND NECK: Extraocular muscles intact. Pupils equally round and reactive to light. Mucous membranes are moist. Neck is supple. There is no JVD. CARDIOVASCULAR: S1, S2, regular rate. No edema of the bilateral lower extremities. RESPIRATORY: Chest is clear to auscultation bilaterally. Bilateral equal air entry. No rales or rhonchi. ABDOMEN: Soft, obese, positive bowel sounds, nontender. No organomegaly. MUSCULOSKELETAL: No clubbing or cyanosis. Pulses are 2+. CREDIT ANALYST: No focal deficit. Power is 5/5 in all extremities. LABORATORY REVIEW: CBC showed WBC 10.7, hemoglobin 14.1, platelets 264,000. BNP showed sodium 133, potassium 3.7, chloride 99, bicarb 28, BUN 18, creatinine 1.07, calcium 8.8. CPK 1,245. CURRENT INPATIENT MEDICATIONS: Patient's medications were all reviewed by myself. I have decreased his I.V. fluid to ringers lactate at 75 cc an hour. No other significant change in the medications. ASSESSMENT AND PLAN: 1. Acute renal failure secondary to rhabdomyolysis and dehydration: Renal function is improving. Continue gentle I.V. fluid hydration. Continue to encourage oral hydration. 2. Rhabdomyolysis: Patients CPK is trending down, he is drinking enough liquids orally. I.V. fluid is slowly being cut down and tomorrow morning I would stop his I.V. fluids. 3. Acute gastroenteritis: Patient is getting I.V. Levaquin. White cell count is improving. Nausea and vomiting is getting better. DISPOSITION: Hopefully patient should be ready to be discharged from the hospital within the next 24 to 48 hours. He would need work excuse for the next week because of recent rhabdomyolysis. MTDD
--- NOTE | 2020-04-07 12:21 | IPN ---
DATE: 04/02/2020 SUBJECTIVE: Patient was seen and examined at the bedside today morning. He is afebrile and hemodynamically stable. He continues to be on I.V. ringers lactate now. Renal function is improving. He has good urine output. Color of the urine is getting better now. He reported that his urine was very dark yesterday. Hyponatremia is getting better. His sodium is up to 134 now. OBJECTIVE: VITAL SIGNS: Temperature 98.9 degrees Fahrenheit, blood pressure 138/90, pulse 83, respiratory rate 20, saturating 96% on room air. Intake and output: Urine output recorded as 1.8 liters yesterday, 1875 mL so far today since overnight. Weight in the bed scale is 100.6 kg. PHYSICAL EXAMINATION: GENERAL: Patient is awake, alert, and oriented x3, lying in the bed in no apparent distress. HEAD AND NECK: Extraocular muscles intact. Pupils equally round and reactive to light. Mucous membranes are moist. Neck is supple. There is no JVD. CARDIOVASCULAR: S1, S2, regular rate. No edema of the bilateral lower extremities. RESPIRATORY: Chest is clear to auscultation bilaterally. Bilateral equal air entry. No rales or rhonchi. ABDOMEN: Soft, obese. Positive bowel sounds. Nontender. No organomegaly. MUSCULOSKELETAL: No clubbing or cyanosis. Pulses are 2+. RANCH MANAGER: No focal deficit. Power is 5/5 in all extremities. LABORATORY REVIEW: CBC showed WBC 19.4, hemoglobin 16.3, platelets 327,000. Urine albumin osmolality was 425 and random sodium was 10 yesterday. BMP done today morning showed sodium 134, potassium 4.2, chloride 98, bicarb 27, BUN 33, creatinine 1.4, glucose 107. Total bilirubin 1.6. AST 148, ALT 100. Creatine kinase 4,013. CURRENT INPATIENT MEDICATIONS: Patient's medications were all reviewed by myself. He was getting ringers lactate at 140 cc an hour. He is on Levaquin 500 mg I.V. daily. He is on Reglan p.r.n. and Zofran p.r.n. ASSESSMENT AND PLAN: 1. Acute renal failure: It is multifactorial secondary to dehydration, volume depletion, gastroenteritis and rhabdomyolysis. Patient is getting I.V. fluid hydration. Renal function is very good and improving. Continue I.V. fluid hydration at this time. 2. Rhabdomyolysis: It was secondary to dehydration induced by gastroenteritis and daily exercise. CPK level is improving. Electrolytes are within the acceptable range at this time. I have decreased the ringers lactate dose to 100 cc an hour. Continue to encourage oral hydration as well. 3. Hyponatremia: Patient has hypovolemic hyponatremia, sodium level is improving and to prevent the overcorrection of the sodium, I have decreased the ringers lactate dose. Repeat sodium level is 131 at this time, which is acceptable for now. 4. Acute gastroenteritis: Patient's symptoms are getting better, he is getting I.V. Ciprofloxacin. White cell count is improving. DISPOSITION: Patients electrolytes and renal function are improving. Hopefully we should be able to send the patient home in the next 48 hours, however after discharge from the hospital, patient should be given excuse from work for at least one week because of acute rhabdomyolysis. MTDD
--- NOTE | 2020-04-08 09:48 | CR ---
DATE OF CONSULTATION: CONSULTATION REQUESTED BY: Bárbara Augustin M.D. REASON FOR CONSULTATION: Acute kidney injury and rhabdomyolysis. HISTORY OF PRESENT ILLNESS: Mr. 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 He reports that he has not been feeling well since Saturday evening and was nauseated. He also has reported sweating and abdominal cramps. In the Emergency Room, he was found to have acute kidney injury and rhabdomyolysis with CPK level of about 10,000. Creatinine is up to 5.9 and BUN 86. Nephrology consultation was requested and patient is seen this morning. It is important to note that his sodium level was only 119 on presentation. Patient has received about 3 liters of normal saline before my arrival. PAST MEDICAL HISTORY: The patient has no prior medical problems. PAST SURGICAL HISTORY: History of prior hip surgery. FAMILY HISTORY: Negative for any kidney problems. PERSONAL AND SOCIAL HISTORY: Patient smokes and also drinks alcohol only on the weekends. He denies any recreational drug use. ALLERGIES: No known drug allergies. MEDICATIONS: Patient has no scheduled medications as an outpatient. REVIEW OF SYSTEMS: Denies any fever or chills, but reports profuse sweating. He has been nauseated mostly, but did vomit a few times. He denies any rectal bleeding, black colored stools or coffee-ground material in the vomitus. Ears, nose, and throat are unremarkable. Cardiovascular system is negative for dyspnea, chest pain or leg edema. Respiratory system is negative for cough or hemoptysis. GI system is as per history of present illness. system is negative for dysuria, hematuria or dark colored urine. Musculoskeletal system is negative for any arthralgias or leg edema. Skin is negative for rash or ulcers. Endocrine system is negative for diabetes or thyroid problems. Psychosocial system is negative for depression or anxiety. Hematological system is negative for anemia or leukemia. Neurological system is negative for seizures or stroke. Skin is negative for rash or ulcers. PHYSICAL EXAMINATION: Temperature 98.3 degrees Fahrenheit, heart rate 84 per minute, respiratory rate 18 per minute, blood pressure 130/80 mmHg and oxygen saturation 97% on room air. Head is atraumatic. Neck is supple and without JVD or thyroid enlargement. There is no oral thrush or ulcers. Mucosa is moist and healthy. Heart sounds are somewhat tachycardic now. Lungs sound clear to auscultation. Abdomen is soft and nontender, and there is no palpable organomegaly. Bowel sounds are normal. Extremities without any cyanosis or clubbing. Neurologically, he is awake, alert and oriented x3. LABORATORY DATA: On presentation WBC 28.2, hemoglobin 19.7, hematocrit 55.5. CBC today showed WBC down to 19.4, hemoglobin 16.3, hematocrit 45. Initial sodium 119, potassium 3.4, chloride 77, CO2 22, glucose 77, creatinine 5.9 and BUN 86. Uric acid level 19.2. Calcium 8.7 and phosphorus 8.0. Repeat sodium now 124, potassium 3.7, CO2 22, BUN down to 76, creatinine 3.4, glucose 116 and calcium 8.3. CPK level initially 10,799, which has come down to 8,201. Intact PTH level 229.9. PROBLEMS: 1. Acute kidney injury: Most likely due to dehydration as patient has been vomiting and nauseated for three days and also reports profuse sweating. He is being hydrated with I.V. fluid. He is tolerating oral intake also much better now. 2. Hyponatremia: Most likely this is acute and related to his GI problems for the last three days. His sodium level has started to improve. I will recommend to monitor closely and do not overcorrect to fast. Patient is being encouraged to continue with oral intake of liquids, which will also help to prevent rapid correction of his sodium. 3. Hypokalemia: Potassium level was 3.4 and now repeat 3.7. I have given him another dose of oral potassium chloride 40 mEq. 4. Rhabdomyolysis: Etiology is uncertain, most likely this is related to dehydration. His CPK level has already started to improve. Will continue with aggressive I.V. fluid hydration. 5. Hyperparathyroidism: Etiology is uncertain at present. This seems to be primary hyperparathyroidism as his kidney problem is most likely acute, related to dehydration. In any event, this will need to be followed up as an outpatient. Thank you for involving me in the care of Mr. Russell. I will follow him along with you. MILLER
--- NOTE | 2020-04-08 13:10 | REP ---
PORTABLE CHEST X-RAY: SINGLE VIEW HISTORY: Cough and leukocytosis. FINDINGS: The lungs are well-inflated and clear. The pleural angles are sharp. Heart size is normal. Pulmonary vasculature is not increased. IMPRESSION: No infiltrate seen. No active disease. MTDD
== END 2020-04-04 14:26 | disposition home or self-care (01) | DRG 682 ==
LOC: M ED 22:31 → M ED INP 04-01 02:37 → M PCU 04-01 04:47 → M MSPAV 04-01 17:15
PROVIDERS: ADMIT Internal Medicine; ATTEND Family Medicine
DX: N17.9 Acute kidney failure, unspecified (principal); J18.9 Pneumonia, unspecified organism; E87.1 Hypo-osmolality and hyponatremia; E87.2 Acidosis; M62.82 Rhabdomyolysis; E86.0 Dehydration; A08.4 Viral intestinal infection, unspecified; R74.0 Nonspecific elevation of levels of transaminase and lactic acid dehydrogenase [LDH]; E66.9 Obesity, unspecified; K76.0 Fatty (change of) liver, not elsewhere classified; E87.6 Hypokalemia; Z68.33 Body mass index [BMI] 33.0-33.9, adult; Z20.828 Contact with and (suspected) exposure to other viral communicable diseases